=== PATIENT | male | born 1990 | race Caucasian/White ===

== ENCOUNTER 2023-05-25 02:01 | Emergency (ER) | payer MEDICAID ==
[~2023-05-25] VITALS: Ht 167.6 cm; Wt 108.9 kg
[2023-05-25 02:15] VITALS: BP_SYST 144; PULSE 99; RESP 18; TEMP 96.7; O2SAT 95
[2023-05-25] MEDS ORDERED: IPRATROPIUM/ALBUTEROL SULFATE 3 ML AMPUL.NEB (DUONEB) INH ONE (02:15)
[2023-05-25 03:07] VITALS: BP_SYST 144; PULSE 99; RESP 18
[2023-05-25 03:14] LABS: INFLUENZA TYPE A Negative (NEGATIVE); INFLUENZA TYPE B NEGATIVE (NEGATIVE)
[2023-05-25] MEDS ORDERED: ALBMDI INH (03:28)
[2023-05-25] MEDS ORDERED: CEFU250T85 PO (03:28)
[2023-05-25] MEDS ORDERED: METH-776 PO (03:28)
[2023-05-25 03:35] VITALS: TEMP 97.8; O2SAT 97
== END 2023-05-25 03:35 | disposition home or self-care (01) ==
LOC: SED 02:01
DX: J45.909 Unspecified asthma, uncomplicated (principal); R06.02 Shortness of breath; Z79.899 Other long term (current) drug therapy; Z20.822 Contact with and (suspected) exposure to COVID-19
CPT/HCPCS: 36415; 71045; 94640; 94760; 99284

== ENCOUNTER 2023-12-25 20:23 | Emergency (ER) | payer MEDICAID ==
[~2023-12-25] VITALS: Ht 170.2 cm; Wt 104.3 kg
[~2023-12-25 20:23] MED LIST: ALBMDI INH; CEFU250T85 PO; METH-776 PO
[2023-12-25 20:51] VITALS: BP_SYST 130; PULSE 74; RESP 18; TEMP 97.9; O2SAT 98
[2023-12-25 22:42] LABS: INFLUENZA TYPE A Negative (NEGATIVE); INFLUENZA TYPE B NEGATIVE (NEGATIVE)
[2023-12-25] MEDS ORDERED: PRED20TA PO (23:13)
[2023-12-25] MEDS ORDERED: AZIT-93 PO (23:13)
[2023-12-25] MEDS ORDERED: ALBMDI INH (23:13)
[2023-12-25] MEDS: ALBUTEROL SULFATE 0.083% 2.5 MG/3 ML VIAL.NEB INH ONE (23:38)
[2023-12-25] MEDS: predniSONE 20 MG TABLET PO ONE (23:38)
[2023-12-25 23:44] VITALS: BP_SYST 130; PULSE 74; RESP 18; TEMP 97.9; O2SAT 99
[2023-12-25] MEDS ORDERED: ALBUTEROL MDI INHALATION 8 GM INH INH PRN (23:45)
== END 2023-12-25 23:44 | disposition home or self-care (01) ==
LOC: SED 20:23
DX: R05.9 Cough, unspecified (principal); Z20.822 Contact with and (suspected) exposure to COVID-19; R09.89 Other specified symptoms and signs involving the circulatory and respiratory systems; F17.210 Nicotine dependence, cigarettes, uncomplicated; F14.90 Cocaine use, unspecified, uncomplicated; Z88.0 Allergy status to penicillin; Z79.899 Other long term (current) drug therapy; Z79.2 Long term (current) use of antibiotics
CPT/HCPCS: 99284; 71045; 87426; 36415; 94640; 87804 ×2; J7512